=== PATIENT | female | born 1960 | race Caucasian/White ===

== ENCOUNTER 2018-02-26 12:27 | Inpatient (IN) | payer OTHER ==
[~2018-02-26] VITALS: Ht 167.6 cm; Wt 74.8 kg
[~2018-02-26 12:27] MED LIST: FLECAINIDE ACET50 MG PO; NABUMETONE500 MG PO; PERCOCET 5/3251 TAB PO; PROPANOLOL PO; SYNTHROID75 MCG PO; TOPROL XL100 MG PO
== END 2018-02-28 09:15 | disposition home or self-care (01) | DRG 310 ==
LOC: ER 12:27 → ICU-2 17:00
PROC: B246ZZZ Ultrasonography of Right and Left Heart (ICD-10-PCS; principal; 2018-02-27)
DX: I48.0 Paroxysmal atrial fibrillation (principal); E03.8 Other specified hypothyroidism; I10 Essential (primary) hypertension; I47.1 Supraventricular tachycardia

== ENCOUNTER 2019-02-26 14:50 | Emergency (ER) | payer OTHER ==
[~2019-02-26] VITALS: Ht 167.6 cm; Wt 72.6 kg
== END 2019-02-26 19:53 | disposition home or self-care (01) ==
LOC: ER 14:50
DX: I47.1 Supraventricular tachycardia (principal)

== ENCOUNTER 2019-10-22 08:00 | Day surgery (SDC) | payer OTHER ==
[~2019-10-22] VITALS: Ht 165.1 cm; Wt 73.0 kg
[~2019-10-22 08:00] MED LIST changes: +XARELTO20 MG PO
== END 2019-10-22 23:10 | disposition home or self-care (01) ==
LOC: CIR.AMB 08:00
DX: C67.5 Malignant neoplasm of bladder neck (principal)

== ENCOUNTER 2020-01-07 16:41 | Inpatient (IN) | payer OTHER ==
[~2020-01-07] VITALS: Ht 167.6 cm; Wt 67.6 kg
== END 2020-01-12 14:14 | disposition home or self-care (01) | DRG 690 ==
LOC: SEC-K 16:41 → SURH 16:41
PROVIDERS: ADMIT Urology
PROC: 8E0ZXY6 Isolation (ICD-10-PCS; principal; 2020-01-07)
PROC: BT43ZZZ Ultrasonography of Bilateral Kidneys (ICD-10-PCS; 2020-01-11)
DX: N39.0 Urinary tract infection, site not specified (principal); I47.1 Supraventricular tachycardia; C67.8 Malignant neoplasm of overlapping sites of bladder; B96.1 Klebsiella pneumoniae [K. pneumoniae] as the cause of diseases classified elsewhere; I10 Essential (primary) hypertension; E03.8 Other specified hypothyroidism

== ENCOUNTER 2020-07-07 11:32 | Outpatient (CLI) | payer OTHER | END 2020-07-07 11:44 | disposition home or self-care (01) | LOC: NUCLEAR 11:32 | PROVIDERS: ATTEND Internal Medicine | DX: I82.622 Acute embolism and thrombosis of deep veins of left upper extremity (principal) ==

== ENCOUNTER 2020-08-20 19:53 | Inpatient (IN) | payer OTHER ==
[~2020-08-20] VITALS: Ht 162.6 cm; Wt 62.6 kg
[2020-08-20] MEDS ORDERED: GRALISE600 MG (19:59)
[2020-08-20] MEDS ORDERED: UREX (20:13)
[2020-08-20] MEDS ORDERED: WARFARIN SODIU2.5 MG (20:14)
--- NOTE | 2020-08-20 20:15 | NUR ---
SE RECIVE PTE LA CUAL LLEGA POR REFERIDO DE DR. [place] DANIELSON, YA QUE PTE PRESENTA INFECCION DE UA SEVERA POR LA CUAL ESTA RECIBIENDO TRATAMIENTO DE ANTIBIOTICOS UREX JAMARI EL MISMO NO A CONTRALADO LA INFECCION Y LLEGA A ER PARA SER ADMITIDA PRA RECIBIR TRATAMIENTO MEDICO POR VENA ( AMIKIN ). PTE LLEGA CON SINTOMAS DE FIEBRE LA MISMA ES PTE DE CANCER DE VEJIGA.
== END 2020-08-28 11:11 | disposition home or self-care (01) | DRG 690 ==
LOC: ER 19:53 → SEC-K 21:05 → SURG 21:05
PROVIDERS: ADMIT Urology; ATTEND Urology
PROC: 8E0ZXY6 Isolation (ICD-10-PCS; principal; 2020-08-20)
PROC: 02HV33Z Insertion of Infusion Device into Superior Vena Cava, Percutaneous Approach (ICD-10-PCS; 2020-08-25)
DX: N39.0 Urinary tract infection, site not specified (principal); B96.1 Klebsiella pneumoniae [K. pneumoniae] as the cause of diseases classified elsewhere; N13.1 Hydronephrosis with ureteral stricture, not elsewhere classified; C67.8 Malignant neoplasm of overlapping sites of bladder

== ENCOUNTER → 2020-09-22 11:22 | Outpatient (CLI) | payer OTHER ==
[~2020-09-22 11:22] MED LIST changes: +GRALISE600 MG; +UREX; +WARFARIN SODIU2.5 MG
== END | disposition home or self-care (01) ==
LOC: LAB 11:22
PROVIDERS: ATTEND Urology
DX: N30.00 Acute cystitis without hematuria (principal); R31.1 Benign essential microscopic hematuria

== ENCOUNTER → 2020-09-25 08:57 | Outpatient (CLI) | payer OTHER | END | disposition home or self-care (01) | LOC: LAB 08:57 | PROVIDERS: ATTEND Urology | DX: R73.09 Other abnormal glucose (principal); R31.1 Benign essential microscopic hematuria; N30.00 Acute cystitis without hematuria; E03.8 Other specified hypothyroidism; C67.8 Malignant neoplasm of overlapping sites of bladder ==

== ENCOUNTER 2020-09-26 07:48 | Outpatient (CLI) | payer OTHER | END 2020-09-26 08:04 | disposition home or self-care (01) | LOC: TOM 07:48 | PROVIDERS: ATTEND Urology | DX: N20.0 Calculus of kidney (principal); N30.00 Acute cystitis without hematuria ==

== ENCOUNTER → 2020-10-24 12:47 | Outpatient (CLI) | payer OTHER ==
[~2020-10-24 12:47] MED LIST changes: +XARELTO20 MG
== END | disposition home or self-care (01) ==
LOC: LAB 12:47
PROVIDERS: ATTEND Urology
DX: N30.00 Acute cystitis without hematuria (principal)

== ENCOUNTER 2020-10-28 11:08 | Inpatient (IN) | payer OTHER ==
[~2020-10-28] VITALS: Ht 167.6 cm; Wt 63.0 kg
[~2020-10-28 11:08] MED LIST changes: -XARELTO20 MG
[2020-10-28] MEDS ORDERED: XARELTO20 MG (11:17)
--- NOTE | 2020-10-28 11:18 | NUR ---
PTE REFERIDA POR DR HOUGH PARA ADMITIR POR INFECCION SE SARAY S/V YSE UBIAC EN AREA DE OBSERVACION
--- NOTE | 2020-10-28 16:16 | NUR ---
SE ORIENTA A PTE SOBRE PROCESO DE VENOPUNCION, EZRA DE MUESTRAS Y CULTIVOS PTE REFIERE ENTENDER INF MARIE POR RN DE TURNO. SE MANTIENE PTE BAJO OBSERVACION RECIBIENDO TRATAMIENTO MEDICO.
== END 2020-11-03 13:21 | disposition home or self-care (01) | DRG 690 ==
LOC: ER 11:08 → SURH 17:17
PROVIDERS: ADMIT Urology; ATTEND Urology
PROC: BW21ZZZ Computerized Tomography (CT Scan) of Abdomen and Pelvis (ICD-10-PCS; principal; 2020-10-31)
DX: N30.00 Acute cystitis without hematuria (principal); I48.20 Chronic atrial fibrillation, unspecified; Z16.24 Resistance to multiple antibiotics; B96.1 Klebsiella pneumoniae [K. pneumoniae] as the cause of diseases classified elsewhere; I10 Essential (primary) hypertension; E03.8 Other specified hypothyroidism; Z20.828 Contact with and (suspected) exposure to other viral communicable diseases

== ENCOUNTER 2020-11-26 12:51 | Emergency (ER) | payer OTHER ==
[~2020-11-26] VITALS: Ht 167.6 cm; Wt 63.5 kg
[~2020-11-26 12:51] MED LIST changes: +XARELTO20 MG
== END 2020-11-26 20:30 | disposition home or self-care (01) ==
LOC: ER 12:51
DX: I47.1 Supraventricular tachycardia (principal); Z03.818 Encounter for observation for suspected exposure to other biological agents ruled out

== ENCOUNTER → 2020-12-15 | Outpatient (CLI) | payer OTHER | END | disposition home or self-care (01) | LOC: NUCLEAR 10:54 | PROVIDERS: ATTEND Internal Medicine | DX: I73.9 Peripheral vascular disease, unspecified (principal); I82.622 Acute embolism and thrombosis of deep veins of left upper extremity ==

== ENCOUNTER 2025-09-21 11:06 | Emergency (ER) | payer OTHER ==
[~2025-09-21] VITALS: Ht 167.6 cm; Wt 71.2 kg
[2025-09-21 12:00] VITALS: BP 105/66; O2SAT 96
[2025-09-21] MEDS ORDERED: ORPHENADRINE CITRATE 30 MG/ML AMPUL IM ONE (14:15)
[2025-09-21] MEDS ORDERED: KETOROLAC TROMETHAMINE 30 MG VIAL IM ONE (14:15)
[2025-09-21] MEDS ORDERED: DEXAMETHASONE SODIUM PHOSPHATE 4 MG/ML VIAL IM ONE (14:15)
[2025-09-21] MEDS ORDERED: ORPHENADRINE CITRATE 30 MG/ML AMPUL ONE (14:33)
[2025-09-21] MEDS ORDERED: KETOROLAC TROMETHAMINE 30 MG VIAL ONE (14:33)
[2025-09-21] MEDS ORDERED: DEXAMETHASONE SODIUM PHOSPHATE 4 MG/ML VIAL ONE (14:34)
[2025-09-21] MEDS ORDERED: KETO10TA2 PO (15:45)
[2025-09-21] MEDS ORDERED: NORFLEX100MG PO (15:45)
== END 2025-09-21 15:50 | disposition home or self-care (01) ==
LOC: ER 11:06
DX: S52.121A Displaced fracture of head of right radius, initial encounter for closed fracture (principal); W19.XXXA Unspecified fall, initial encounter; Y93.89 Activity, other specified; Y92.89 Other specified places as the place of occurrence of the external cause; Y99.8 Other external cause status; I49.9 Cardiac arrhythmia, unspecified; E03.8 Other specified hypothyroidism; Z88.0 Allergy status to penicillin; Z88.1 Allergy status to other antibiotic agents